=== PATIENT | male | born 2005 | race African-American/Black ===

== ENCOUNTER 2023-06-01 09:01 | Emergency (ER) | payer OTHER, BC, SELFPAY ==
[2023-06-01 09:12] VITALS: BP 115/61; PULSE 60; RESP 14; TEMP 37.1; O2SAT 99
[2023-06-01 09:20] VITALS: BP 115/61; PULSE 60; RESP 14; TEMP 37.1; O2SAT 99
--- NOTE | 2023-06-01 09:54 | ED.WOUNDLAC ---
HPI - Wound/Laceration General Chief Complaint: Wound/Laceration Stated Complaint: swelling on side of head Source: patient Mode of arrival: ambulatory History of Present Illness HPI narrative: 17-year-old male presents to the [facility] complaining of a possible bug bite to the forehead. Patient stated he was at work when he felt a bump on the left mu-ism region of his head. Patient is unsure if it was a pimple or bug bite he decided a pop it and then it became inflamed and swollen. Patient's applied hydrocortisone cream on it to help with inflammation and then the patient left work to come seek further evaluation. Patient states that the inflammation has improved and he has no other complaints, patient's spouse was concerned for impetigo. Related Data Home Medications Medication Instructions Recorded Confirmed No Home Medications 06/01/23 06/01/23 Allergies Allergy/AdvReac Type Severity Reaction Status Date / Time No Known Allergies Allergy Verified 06/01/23 09:19 Review of Systems Review of Systems: CONSTITUTIONAL: Denies fever, chills, or sweats. EYES: Denies visual changes, redness, or discharge. ENT: Denies otalgia and sore throat CARDIOVASCULAR: Denies chest pain, palpitations, or edema. RESPIRATORY: Denies cough or dyspnea. GASTROINTESTINAL: Denies abdominal pain, nausea, vomiting, or diarrhea. GENITOURINARY: Denies dysuria or hematuria. SKIN: Positive for wound on forehead. MUSCULOSKELETAL: Denies back pain, joint pain, or myalgia. NEUROLOGIC: Denies headache, numbness, or weakness. Pertinent positives per HPI. PMFSH Comments At the time of my signature, I reviewed and agree with the nursing past medical, surgical, social, and family history. There is no relevant family history pertinent to the patient complaint. Exam Narrative: GENERAL: This is a well-nourished, well-developed patient, in no apparent distress. HEAD: normocephalic, atraumatic. EYES: Sclera clear/white. Vision is grossly intact. EARS: External ears normal, auditory canals clear and without drainage, TMs normal without perforation. Hearing grossly intact. NOSE: External nose normal with no obvious nasal discharge, nares without redness, no rhinorrhea. THROAT: Mucous membranes moist, posterior pharynx clear. NECK: Neck supple, non-tender without lymphadenopathy, masses or thyromegaly. CARDIOVASCULAR: Regular rate and rhythm without murmurs, gallops, or rubs. RESPIRATORY: Clear to auscultation. Breath sounds equal bilaterally. No wheezes, rales, or rhonchi. GASTROINTESTINAL: Abdomen soft, non-tender, nondistended. Bowel sounds are active. No hepato-splenomegaly, or palpable masses. No guarding. SKIN: There is a wheal measuring less than 0.5 cm to the left mu-ism region of the patient's head that is minimally raised. There is an abrasion in the center of the wheal, no surrounding cellulitis, no induration, no area fluctuance, no erythema. NEURO: awake, alert, and oriented to person, place and time. There were no obvious focal neurologic abnormalities. EXTREMITIES: No clubbing, cyanosis, or edema. No joint tenderness, effusion, or edema noted. BACK: Nontender without deformity or crepitus. No flank tenderness. Course Course Level of Care: Express Care Visit Vital Signs Vital signs: Vital Signs Temperature 98.7 F 06/01/23 09:12 Pulse Rate 60 06/01/23 09:12 Respiratory Rate 14 06/01/23 09:12 Blood Pressure 115/61 06/01/23 09:12 Pulse Oximetry 99 06/01/23 09:12 Oxygen Delivery Room Air 06/01/23 09:12 Temperature 98.7 F 06/01/23 09:20 Pulse Rate 60 06/01/23 09:20 Respiratory Rate 14 06/01/23 09:20 Blood Pressure 115/61 06/01/23 09:20 Pulse Oximetry 99 06/01/23 09:20 Oxygen Delivery Room Air 06/01/23 09:20 Reviewed MDM - Wound/Laceration MDM Narrative Medical decision making narrative: Do not pick at the area in order to prevent infection. You may apply hydrocorti
== END 2023-06-01 09:39 | disposition home or self-care (01) ==
PROVIDERS: Emergency Provider Nurse Practitioner Family
DX: S00.86XA Insect bite (nonvenomous) of other part of head, initial encounter (principal); W57.XXXA Bitten or stung by nonvenomous insect and other nonvenomous arthropods, initial encounter
CPT/HCPCS: 99211; G0463

== ENCOUNTER 2025-05-23 12:40 | Emergency (ER) | payer SELFPAY ==
--- NOTE | ~2025-05-23 | XR_ITS ---
EXAMINATION: XR abdomen/kub 1V DATE: 05/23/2025 13:23 INDICATION: Hematuria TECHNIQUE: A supine view of the abdomen on 2 radiographs was obtained. COMPARISON: None. FINDINGS: No evident urolithiasis. Normal bowel gas pattern. Sclerotic lesion projecting over the left iliac cr est. Lung bases are clear. Heart size is normal. IMPRESSION: 1. Normal bowel gas pattern. No urolithiasis. 2. Indeterminate sclerotic lesion projecting over the left iliac crest, unclear within the bone or in the superimposed soft tissues. Could consider either an oblique lateral projection which along the a xis of the iliac wing or CT for further evaluation. Reviewed, dictated and finalized at location A. IMPRESSION: 1. Normal bowel gas pattern. No urolithiasis. 2. Indeterminate sclerotic lesion projecting over the left iliac crest, unclear within the bone or in the superimposed soft tissues. Could consider either an oblique lateral projection which along the axis of the iliac wing or CT for fur ther evaluation.
--- NOTE | 2025-05-23 12:42 | ED_ITS ---
HPI - General Adult General Chief complaint: Urogenital-Male Stated complaint: blood in urine Time Seen by Provider: 05/23/25 12:42 Source: patient Mode of arrival: ambulatory Limitations: no limitations History of Present Illness HPI narrative: 19-year-old male patient presents to the [facility] with complaints of blood in the urine that he noticed this morning. Patient states he went to urinate this morning and states he felt like it was kind of hard to start history many had to kind of pushed through something and then when he did urinate he had gross red blood noted in his urine. 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 When coming into the Urgent Care today and providing the sample he did state that at the end of his stream he did have some drips of blood that he noted. Patient denies any pain at this time. Denies any fevers body aches chills. Denies any lower back pain abdominal pain nausea vomiting or diarrhea. Patient states he has had 1 or 2 UTIs before in the past. Last 1 was over a year ago. Patient states he is in a monogamous relationship and does not have any concerns for STIs. Related Data Home Medications ?Medication ?Instructions ?Recorded ?Confirmed ?Last Taken ?Type No Home Medications 06/01/23 06/01/23 Unknown History Allergies Allergy/AdvReac Type Severity Reaction Status Date / Time No Known Allergies Allergy Verified 06/01/23 09:19 Review of Systems Review of Systems: CONSTITUTIONAL: Denies fever, chills, or sweats. EYES: Denies visual changes, redness, or discharge. ENT: Denies rhinorrhea, congestion, sore throat, or otalgia. CARDIOVASCULAR: Denies chest pain, palpitations, or edema. RESPIRATORY: Denies cough or dyspnea. GASTROINTESTINAL: Denies abdominal pain, nausea, vomiting, or diarrhea. GENITOURINARY: Denies dysuria , positive hematuria. SKIN: Denies rash or itching. MUSCULOSKELETAL: Denies back pain, joint pain, or myalgia. NEUROLOGIC: Denies headache, numbness, or weakness. PSYCHIATRIC: Denies anxiety or depression. [facility] Past Medical History Medical History (Updated 05/23/25 @ 14:08 by JOSUE Bahena) Complicated urinary tract infection Comments At the time of my signature I agree with nursing past medical history, surgical, social, and family history. There is no relevant family history pertinent to the presenting complaint. Exam Narrative: GENERAL: Well-appearing, well-nourished, and in no acute distress. HEAD: Normocephalic, atraumatic. EYES: PERRLA and EOMI. ENT: Nares clear, no rhinorrhea or epistaxis. Mucous membranes moist. posterior pharynx with no erythema, tonsillar enlargement, exudates or lesions present. Bilateral TMs are clear no erythema or foreign bodies canal contents. NECK: Supple. No lymphadenopathy CHEST: Clear to auscultation. No respiratory distress. HEART: Regular rate and rhythm. No murmur heard. Normal peripheral pulses. ABDOMEN: Soft, flat, nondistended. No guarding, rebound tenderness, or rigid. No pulsatilla masses. Bowel sounds present in all four quadrants. No organomegaly. Negative Chua?s sign. No periumbicial tenderness. No Supra public tenderness or distension. Good femoral pulses bilaterally. No hernia noted. No scars or surface trauma. No CVA tenderness on percussion EXTREMITIES: Normal range of motion. No edema. SKIN: Warm, dry, no rash. NEURO: No focal deficits. Alert and oriented x3. Course Course Level of Care: Express Care Visit Reevaluation(s) Reevaluation #1: Re-evaluated the KUB results with patient. Notified him that there is no obvious evidence for kidney stones in the KUB. Discussed with him that again this is not the gold standard of testing to determine if he has a kidney stone and highly recommend that he follows up with his primary doctor to possibly obtain a CT for further evaluation. Discussed with patient that the x-ray did show that he has possibly some constipation which I highly recommend that he treats with some [id number] MiraLax. Discussed with patient to continue to flush his system with water however it is very important that he continues to follow up with the blood in the urine with his primary doctor and most likely will need additional testing. Discussed with patient that he should follow-up regardless if it resolves on its own. Patient verbalized understanding denies any other questions or concerns at this time. Date: 05/23/25 Time: 14:10 Vital Signs Vital signs: Vital Signs Temperature 37.2 C 05/23/25 12:51 Pulse Rate 65 05/23/25 12:51 Respiratory Rate 18 05/23/25 12:51 Blood Pressure 140/57 L 05/23/25 12:51 Pulse Oximetry 100 05/23/25 12:51 Oxygen Delivery Room Air 05/23/25 12:51 Temperature 37.2 C 05/23/25 12:51 Pulse Rate 65 05/23/25 12:51 Respiratory Rate 18 05/23/25 12:51 Blood Pressure 140/57 L 05/23/25 12:51 Pulse Oximetry 100 05/23/25 12:51 Oxygen Delivery Room Air 05/23/25 12:51 Vital signs reviewed. The patient has been informed that they may have pre-hypertension or Hypertension based on a BP reading in the department. I recommend that the patient call the primary care provider listed on their discharge instructions or a physician of their choice this week to arrange follow up for further evaluation of possible pre-hypertension or Hypertension Medical Decision Making MDM Narrative Medical decision making narrative: plan care for patient is to do urine dip to rule out UTI. If this is negative for concerns for UTI will do a KUB to rule out possible kidney stones or additional kidney stones. If this is negative most likely will refer to primary doctor for further testing of prostate bladder. Differential Diagnosis Differential Diagnosis: Differential diagnosis: Uncomplicated lower UTI, uncomplicated UTI, polynephritis, penile trauma,balanoposthitis, phimosis, paraphimosis, testicular torsion, epididymitis, prostatitis, varicocele, spermatocele, hydrocele, hernia. Gonorrhea, chlamydia, Trichomonas, bacterial vaginosis, herpes, HIV, yeast infection, urinary tract infection. Vital Signs Vital Signs: Vital Signs Temperature 37.2 C 05/23/25 12:51 Pulse Rate 65 05/23/25 12:51 Respiratory Rate 18 05/23/25 12:51 Blood Pressure 140/57 L 05/23/25 12:51 Pulse Oximetry 100 05/23/25 12:51 Oxygen Delivery Room Air 05/23/25 12:51 Temperature 37.2 C 05/23/25 12:51 Pulse Rate 65 05/23/25 12:51 Respiratory Rate 18 05/23/25 12:51 Blood Pressure 140/57 L 05/23/25 12:51 Pulse Oximetry 100 05/23/25 12:51 Oxygen Delivery Room Air 05/23/25 12:51 Lab Data Labs: Lab Results 05/23/25 Range/Units 13:01 POC Urine Color Yellow POC Urine Clarity Cloudy POC Urine pH 7.5 POC Ur Specif [place] 1.015 POC Urine Protein Negative (Negative) POC Ur Glucose (UA) Negative (Negative) POC Urine Ketones Negative (Negative) POC Urine Blood 2+ (Negative) POC Urine Nitrite Negative (Negative) POC Urine Bilirubin Negative (Negative) POC Urine Urobilinogen 0.2 POC U Leukocyte Esteras Negative (Negative) Imaging Data Radiologist's impression: [place] [address] XRay Report Signed Patient: Sky Rivero Jr. : 2005 MR#: [id number] Age: 19 Acct:[id number] Loc: [facility] ADM Date: 05/23/25Attending Dr: Ordering Physician: Thania Ramírez [employer]INT PUMPING SUPERVISOR Date of Service: 05/23/25 Procedure(s): XR abdomen/kub 1V Accession Number(s): [id number] cc: Srikanth, Corrie Morgan; Thania Ramírez WE[employer] POINT PUMPING SUPERVISOR~ EXAMINATION: XR abdomen/kub 1V DATE: 05/23/2025 13:23 INDICATION: Hematuria TECHNIQUE: A supine view of the abdomen on 2 radiographs was obtained. COMPARISON: None. FINDINGS: No evident urolithiasis. Normal bowel gas pattern. Sclerotic lesion projecting over the left iliac crest. Lung bases are clear. Heart size is normal. IMPRESSION: 1. Normal bowel gas pattern. No urolithiasis. 2. Indeterminate sclerotic lesion projecting over the left iliac crest, unclear within the bone or in the superimposed soft tissues. Could consider either an oblique lateral projection which along the axis of the iliac wing or CT for further evaluation. Reviewed, dictated and finalized at location A. Please be advised this is a medical document. It is intended for [id number] communication. It is written in medical language and may contain unfamiliar abbreviations or verbiage. Medical documents are intended to carry relevant information, facts as evident, and the clinical opinion of the practitioner at the time of the encounter. This report may have been done utilizing a voice recognition system. Attempts have been made to correct errors. However, there may be uncorrected grammatical, spelling, and recognition errors present. The file time of this note does not necessarily represent the time of service. Dictated By: Francisco Montes De Oca MD 05/23/25 1345 Signed By: <Electronically signed by Francisco Montes De Oca MD in OV> Critical Care Time Critical Care Time Critical Care Time: No Discharge Plan Discharge Clinical Impression: Hematuria Qualifiers: Hematuria type: gross Qualified Code(s): R31.0 - Gross hematuria Constipation Qualifiers: Constipation type: unspecified constipation type Qualified Code(s): K59.00 - Constipation, unspecified Patient Disposition: Home Condition: Stable Instructions: Antibiotic Form, Hematuria (ED) Additional Instructions: We will send a urine culture off to the lab; if the culture identifies an organism, you will receive a phone call from an urgent care staff member and an appropriate antibiotic will be prescribed. -Also recommend: drink more fluid. It might help flush out germs, and it does no harm -Tylenol/ibuprofen prn for pain or fever -Follow-up with your primary care provider for urine recheck or seek ER visit if condition worsens with high fever, nausea, vomiting and severe back pain. start some MiraLax today to help with constipation. Highly recommend starting some probiotics to help with the gut health and constipation. please call your primary care doctor next week for follow-up for further testing. Patient Language: Estonian Prescriptions: No Action No Home Medications Follow-up/Referrals: Srikanth,Corrie Morgan [Primary Care Provider] - Time of Disposition: 14:07
--- OUTSIDE RECORDS SUMMARY | 2025-05-23 12:42 | XMS_ITS | Referral Summary ---
Author Organization [facility] [address] [place] [address] [address] [place] [address] Care Team Providers Care Double End Sewer Name Role Phone Corrie Duke CREW ATTENDANT Primary Care Provider [phone] Allergies No known active allergies Medications SUMAtriptan (IMITREX) 100 mg tabletIndication s:Migraine Take one tabet po q2h prn as soon as feel headache is coming. No more than 2 tablets in 24 hours. 9 tablet 3 4 Active topiramate (TOPAMAX) 50 mg tabletIndication s:Chronic migraine w/o aura w/o status migrainosus, not intractable TAKE ONE TABLET BY MOUTH TWICE A DAY 60 tablet 3 4 Active ofloxacin (OCUFLOX) 0.3 % ophthalmic solution instill 2 drops in both eyes every 4 hours for 2 days, then 2 drops 4 times daily on days 3 through 7 10 mL 4 Active Additional Information Patient not taking.Reported on 07/31/2024 cetirizine (ZyrTEC) 10 mg tablet Take 1 tablet (10 mg total) by mouth daily as needed for allergies 90 tablet 4 4 07/31/20 25 Active fluticasone propionate (FLONASE) 50 mcg/actuation nasal spray Administer 2 sprays into each nostril daily 3 each 4 4 Active escitalopram (LEXAPRO) 10 mg tabletIndication s:Anxiety Take 1 tablet (10 mg total) by mouth daily 90 tablet 4 4 Active Active Problems Problem Noted Date Diagnosed Date Concussion with no loss of consciousness 024 Assessment & Plan (12/26/2023 12:12 PM SYSTEMS PLANNER): Occurred this morning around 0500; was seen at [place] Told mild concussion; remain off work until symptoms resolve Appt with neurology 01/09 Chronic migraine w/o aura w/ o status migrainosus, not intractable 08/29/2023 Assessment & Plan (06/23/2024 3:26 PM CDT): Not well controlled; continues to have migraines nearly every day; reports missing 1-2 days of work per week due to migraines Had initial relief with medications, but since has no longer having prophylactic or abortive treatments with topiramate and sumatriptan Will start Nurtec 75 mg p.r.n. for migraines; evaluate if patient would benefit from by daily dosing for preventative treatments Assessment & Plan (08/29/2023 11:29 AM CDT): Intermittent FMLA paperwork filled out and faxed Continue sumatriptan 50 mg as needed migraine Keep follow-up neurology appointment on January 09, 2024 Anxiety 07/09/2023 Assessment & Plan (08/29/2023 9:41 AM CDT): Currently well controlled Continue lexapro 10 mg daily Patient would like to continue the current dose for 1 month before deciding if he would like to increase to 20 mg daily. Assessment & Plan (07/09/2023 12:03 PM CDT): Not well-controlled Patient is not currently taking meds, however he is seeing a counselor In the counselor have discussed medication in the past Discussed with patient today options regarding medication Patient will think about it and let us know Penis pain 07/09/2023 Assessment & Plan (07/09/2023 12:05 PM CDT): Patient continues to have penile pain as well as testicular pain Patient states these occur at random He also states they are getting better and he has not had any pain in approximately 2-3 days Denies pain at visit Will refer to Urology Chronic post-concussion headache 07/09/2023 Assessment & Plan (07/09/2023 12:06 PM CDT): Patient states he suffered a concussion and personally 1 year ago States he is still having intermittent headaches from this Has been taking OTC medication to help with this. He states that for support it helps however, sometimes he has to leave work. States he may be reaching out for intermittent FMLA regarding headaches from concussion Encounter for medical examination to establish c are 04/03/2023 Assessment & Plan (04/03/2023 4:31 PM CDT): 17-year-old male presents to establish care with PCP. Would like complete allergy panel testing done Would like to discuss anxiety medication at next visit, specifically BuSpar or hydroxyzine Would also like to discuss an episode of chest pain that Cardiology told him was likely inflammatory. Patient does not wish to have a Cardiology consult or discuss further at this time Patient to obtain CMP, CBC, and lipid panel Patient will return for a follow-up visit once lab results are back Finger injury, left, initial encounter Assessment & Plan (04/03/2023 4:32 PM CDT): Patient had left index finger injury playing basketball approximately 10 days ago States it is still swollen and painful X-ray ordered for patient to obtain at [facility]-will contact with results Allergies 04/03/2023 Assessment & Plan (04/03/2023 4:32 PM CDT): Patient requests full allergy panel workup States he believes he is at least allergic to dogs but would like all environmental testing Immunizations Immunization Administration Dates Next Due DTaP 03/21/2010,07/07/2008,12/16/2004 DTaP, Unspecified 08/02/2009 HPV9 01/03/2021 Hep A, Ped Unspecified 03/21/2010 Hep A, Pediatric 07/27/2015 Hep B / HiB 12/16/2004 Hep B, Unspecified 08/02/2009,2003 HiB 08/02/2009 IPV 08/02/2009,12/16/2004 Influenza, Quadrivalent, Spl it, Preservative Free, Intramuscular 08/28/2018 Influenza, Unspecified 12/26/2023(Deferr ed: Patient Refused),08/29/2023(Deferred: Patient Refused),08/22/2023(Deferred: Patient Refused),08/12/2023(Deferred: Patient Refused),08/12/2022(Deferred: Patient Refused),08/12/2022(Deferred: Patient Refused),08/12/2022(Deferred: Patient Refused),08/12/2021(Deferred: Patient Refused) MMR 07/07/2008,12/30/2004 Meningococcal B, OMV (Bexsero) 02/04/2021,2020 Meningococcal MCV4P (Menactra) 01/03/2021,2014 Pneumococcal Conjugate 7-Valent 12/16/2004 Polio, Unspecified 07/07/2008 Tdap 07/27/2015 Varicella 07/27/2015,12/30/2004 Social History Tobacco Use Types Packs/Day Years Used Date Smoking Tobacco: Never Smokeless Tobacco: Never Tobacco Cessation:Counseling Given: Not Answered AUDIT-C Answer Date Recorded Q1: How often do you have a drink containing alcohol? Never 04/03/2023 Q2: How many drinks containi ng alcohol do you have on a typical day when you are drinking? Patient does not drink Q3: How often do you have si x or more drinks on one occasion? Never 04/03/2023 PHQ-2 Answer Date Recorded PHQ-2 Total Score (If total score is 3 or more points, staff should administer the PHQ-9) 0 12/26/2023 Personal Safety Answer Date Recorded Getting School Help Needed Not on file 08/28 Sex and Gender Information Value Date Recorded Sex Assigned at Not on file Legal Sex Male 7:03 PM CDT Gender Identity Male 06/28/2023 9:36 AM CDT Sexual Orientation Straight 06/28/2023 9: 36 AM CDT Last Filed Vital Signs Vital Sign Reading Time Taken Comments Blood Pressure 122/70 07/31/2024 11:43 AM CDT Pulse 66 07/31/2024 11:43 AM CDT Temperature 37.1 C (98.7 F) 07/31/2024 11:43 AM CDT Respiratory Rate 18 07/31/2024 11:43 AM CDT Oxygen Saturation 97% 07/31/2024 11:43 AM CDT Inhaled Oxygen Concentration - - Weight 76.7 kg (169 lb) 07/31/2024 11:43 AM CDT Height 172.7 cm (5' 8) 07/31/2024 11:43 AM CDT Body Mass Index 25.7 07/31/2024 11:43 AM CDT Plan of Treatment Not on file Insurance [facility] [employer] Care Teams Double End Sewer Relationship Specialty Start Date End Date Corrie Duke NP PCP - General Family Medicine 04/03/23
--- OUTSIDE RECORDS SUMMARY | 2025-05-23 12:42 | XMS_ITS ---
Author Organization [facility] Address [address] [place] [address] Phone Care Team Providers Care Plan Rep Name Role Phone Corrie Elkins Primary Care Provider [phone] [facility] Status:Enrolled (Active) Start date:12/10/2024 Enrollment date:12/10/2024 Related social drivers of health:Intimate Partner Violence, Social Connections, Alcohol Use, Tobacco Use, Financial Resource Strain,Depression, Stress, Physical Activity, Food Insecurity, Transportation Needs, Housing Stability, Utilities Continued Care and Services Coordination
--- OUTSIDE RECORDS SUMMARY | 2025-05-23 12:42 | XMS_ITS | Clinical Summary ---
Author Organization [facility] Address [address] [place] [address] Phone Care Team Providers Care Director Microbiology Name Role Phone Corrie Elkins Primary Care Provider [phone] Allergies No known active allergies Medications No known medications Active Problems No known active problems Social History Tobacco Use Types Packs/Day Years Used Date Smoking Tobacco: Never Smokeless Tobacco: Never Sex and Gender Information Value Date Recorded Sex Assigned at Not on file Legal Sex Male 3:30 PM CDT Gender Identity Not on file Sexual Orientation Not on file Last Filed Vital Signs Vital Sign Reading Time Taken Comments Blood Pressure 120/64 09/08/2023 3:18 PM CDT Pulse 96 09/08/2023 1:35 PM CDT Temperature 36.3 C (97.4 F) 09/08/2023 1:35 PM CDT Respiratory Rate 17 09/08/2023 1:35 PM CDT Oxygen Saturation 100% 09/08/2023 1:35 PM CDT Inhaled Oxygen Concentration - - Weight 61.2 kg (135 lb) 09/08/2023 1:34 PM CDT Height 172.7 cm (5' 8) 09/08/2023 1:34 PM CDT Body Mass Index 20.53 09/08/2023 1:34 PM CDT Plan of Treatment Health Maintenance Due Date Last Done Comments Hepatitis C Virus (HCV) Screening 2003 Hepatitis B Immunization (3 of 3 - 3-dose series) 02/10/2005 12/16/2004, 2003 Human Papillomavirus (HPV) Immunization (2 - Male 3-dose series) 01/31/2021 01/03/2021 SARS-COV-2 Immunization ( season) 2024 Influenza Immunization (#1) 2025 08/28/2018 Respiratory Syncytial Virus (RSV) Immunization (Adult) (1 - 1-dose 75+ series) 2078 Pneumococcal Immunization Combined Aged Out 12/16/2004 No longer eligible based on patient's age to complete this topic Measles Mumps Rubella (MMR) Immunization Discontinued 07/07/2008, 12/30/2004 Polio (IPV) Immunization Discontinued 08/02/2009, 02/2005 DTaP/Tdap/Td Immunization Discontinued 2014, 03/21/2010, 08/02/2009, Additional history exists Hepatitis A Immunization Discontinued 07/27/2015, 03/12 TdaP Immunization Completed 07/27/2015 Varicella Immunization Discontinued 07/27/2015, 2004 Meningococcal Immunization (ACWY) Completed 01/03/2021, 07/27/2015 Meningococcal B Immunization Completed 02/04/2021, 01/03/2021 Rotavirus Immunization Aged Out No lo nger eligible based on patient's age to complete this topic Insurance [place] [employer] Care Teams Director Microbiology Relationship Specialty Start Date End Date Corrie Elkins, JAY [address] [place] [id number] PCP - General Hematology 09/08/23
--- OUTSIDE RECORDS SUMMARY | 2025-05-23 12:42 | XMS_ITS | Clinical Summary ---
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 Family History Medical History Relation Name Comments No Known Problems Brother No Known Problems Father Cancer Maternal Grandfather No Known Problems Maternal Grandmother Lupus Mother No Known Problems Sister 1 No Known Problems Sister 2 No Known Problems Sister 3 Relation Name Status Comments Brother Alive Father Alive Maternal Grandfather Maternal Grandmother Alive Mother Sister 1 Alive Sister 2 Alive Sister 3 Alive Social History Tobacco Use Types Packs/Day Years [...] Orientation Straight 06/28/2023 9: 36 AM CDT Obstetrics History Last Filed Vital Signs Vital Sign Reading [...] 07/31/2024 11:43 AM CDT Plan of Treatment Health Maintenance Due Date Last Done Comments Hepatitis C Screening 2003 HPV Vaccines (2 - Male 3-dose series) 01/31/2021 01/03/2021 Regular Well Visit/Exam 18-64 04/03/2024 04/03/2023 Depression Screening 12/26/2024 12/26/2023, 08/29/2023, 07/09/2023, Additional history exists Influenza Vaccine (Season Ended) 2025 08/28/2018 DTaP/Tdap/Td Vaccine (6 - Td or Tdap) 07/27/2025 07/27/2015, 03/21/2010, 08/02/2009, Additional history exists Pneumococcal vaccine <65 Aged Out 12/16/2004 No longer eligible based on patient's age to complete this topic Hepatitis B Screening Completed 08/02/2009 , 12/16/2004, 2003 Varicella Vaccines Completed 07/27/2015, 12/30/2004 Meningococcal Vaccine Completed 01/03/2021, 015 Meningococcal B Vaccine Completed 02/04/2021, 01/03 Insurance [employer] [facility] [employer] Care Teams Graduate Teaching Associate Relationship Specialty Start Date End Date Corrie Duke NP PCP - General Family Medicine 04/03/23
[2025-05-23 12:51] VITALS: BP 140/57; PULSE 65; RESP 18; TEMP 37.2; O2SAT 100
[2025-05-23 13:04] LABS: EDUAAPPEAR Cloudy; EDUABILI Negative (Negative); EDUABLOOD 2+ (Negative); EDUACOLOR1 Yellow; EDUAGLUCOSE Negative (Negative); EDUAKETONE Negative (Negative); EDUALEUKO Negative (Negative); EDUANITRATE Negative (Negative); EDUAPH 7.5; EDUAPROTEIN Negative (Negative); EDUASPGRAVITY 1.015; EDUAUROBILI 0.2
== END 2025-05-23 14:12 | disposition home or self-care (01) ==
PROVIDERS: Emergency Provider Nurse Practitioner Family; PCP Nurse Practitioner
DX: R31.0 Gross hematuria (principal); K59.00 Constipation, unspecified
CPT/HCPCS: 74018; 81003; 87086; 99213; G0463